=== PATIENT | male | born 1990 | race Caucasian/White ===

== ENCOUNTER → 2021-01-06 | Outpatient (REF) ==
[~2021-01-06] MED LIST: [UNRECOGNIZED DRUG - CODE]
== END ==
LOC: M EMP 08:02
PROVIDERS: ATTEND Family Medicine
DX: Z11.52 Encounter for screening for COVID-19 (principal)

== ENCOUNTER → 2023-09-27 | Outpatient (REF) | payer BC | LOC: M SFHCADAM 17:09 | PROVIDERS: ATTEND Physician Assistant | DX: J02.9 Acute pharyngitis, unspecified (principal) ==